=== PATIENT | female | born 1965 | race Caucasian/White ===

== ENCOUNTER 2017-02-08 08:41 | Emergency (ER) | payer OTHER ==
[~2017-02-08] VITALS: Ht 162.6 cm; Wt 78.0 kg
[~2017-02-08 08:41] MED LIST: ALBU8.5H3 INH; AZIT250T94 PO; IBUP-1542 PO
[2017-02-08 08:44] VITALS: Ht 162.6 cm; Wt 78.0 kg
[2017-02-08 09:10] LABS: URINE BLOOD (Dip) POC Trace-intact (NEGATIVE)
[2017-02-08] MEDS ORDERED: CEPH-443 PO (09:29)
--- NOTE | 2017-02-08 09:32 | ERD ---
ER Documentation Chief Complaint Date/Time DATE: 02/08/17 TIME: 09:31 Chief Complaint DYSURIA X 4 DAYS HPI This 51-year-old female presents with dysuria for last 4 days. She was seen at the [facility] and prescribed Bactrim. She complains of persistent dysuria. She denies abdominal pain, fevers, vomiting, bleeding or discharge. She denies flank pain. ROS All systems reviewed and are negative except as per history of present illness. Medications Home Meds Active Scripts Cephalexin* (Keflex*) 500 Mg Capsule, 500 MG PO QID for 5 Days, CAP Prov:RASHEEDA MOHAN MD 02/08/17 Albuterol Sulfate* (Proair HFA*) 8.5 Gm Hfa.aer.ad, 1-2 PUFF INH Q4, #1 INH Prov:VIGNESH AMADOR PA-C 06/04/15 Azithromycin* (Zithromax*) 250 Mg Tablet, 250 MG PO .ZPACK DIRECTED, #6 TAB TAKE 500 MG (2 TABS) THE FIRST DAY THEN 250 MG (1 TAB) DAYS 2-5 Prov:VIGNESH AMADOR PA-C 06/04/15 Ibuprofen* (Motrin*) 600 Mg Tab, 600 MG PO Q6, #20 TAB Prov:VIGNESH AMADOR PA-C 06/04/15 PMhx/Soc Medical and Surgical Hx: pt denies Medical Hx, pt denies Surgical Hx Hx Alcohol Use: No Hx Substance Use: No Hx Tobacco Use: No Physical Exam Vitals Vital Signs Date Time Temp Pulse Resp B/P Pulse Ox O2 Delivery O2 Flow Rate FiO2 02/08/17 08:44 98.1 78 20 130/78 99 Physical Exam Const: [] Alert, [id number]. Head: Atraumatic Eyes: Normal Conjunctiva ENT: Normal External Ears, Nose and Mouth. Neck: Full range of motion..~ No meningismus. Resp: Clear to auscultation bilaterally Cardio: Regular rate and rhythm, no murmurs Abd: Soft, non tender, non distended. Normal bowel sounds Skin: No petechiae or rashes Back: No midline or flank tenderness Ext: No cyanosis, or edema Neur: Awake and alert Psych: Normal Mood and Affect Results 24 hrs Laboratory Tests Test 02/08/17 09:12 Bedside Urine pH (LAB) 6.0 Bedside Urine Protein (LAB) Negative Bedside Urine Glucose (UA) 0.1% Bedside Urine Ketones (LAB) Negative Bedside Urine Blood Trace-intact Bedside Urine Nitrite (LAB) Negative Bedside Urine Leukocyte Esterase (L 3+ Current Medications Medications (Trade) Dose Ordered Sig/Cody Route PRN Reason Start Time Stop Time Status Last Admin Dose Admin Cephalexin (Keflex) 500 mg ONCE ONCE PO 02/08/17 09:30 02/08/17 09:31 UNV Procedures/MDM And shows 3+ leukocytes, 0.1% glucose, hemoglobin and was sent for culture. Patient was given Keflex 500 mg and Pyridium 200 mg by mouth. Patient presents with dysuria despite taking Bactrim from another provider. We will treat with Keflex at home and await culture. She is advised to return for fevers, vomiting , shortness breath or chest pain, abdominal pain. Current signs and symptoms do not suggest to ovarian abscess, PID, appendicitis, acute abdomen, sepsis, pyelonephritis Departure Diagnosis: Primary Impression: Dysuria Condition: Stable Patient Instructions: Understanding Urinary Tract Infections (UTIs) Additional Instructions: TIENE INFECCION EN ORINA . VAMOS A CAMBIAR ANTIBIOTICOS Y PERFORMA CULTURA DE ORINA ( VA A REGRESA 3-4 GUADARRAMA). Cheque otro vez con coronado doctor primario en el proximo guadarrama or regresa para mas o nueva simptomas. RASHEEDA MOHAN MD Feb 08, 2017 09:32
[2017-02-08] MEDS ORDERED: CEPHALEXIN 500 MG CAP PO ONE (09:47)
== END 2017-02-08 10:01 | disposition home or self-care (01) ==
LOC: FTE 08:41
DX: R30.0 Dysuria (principal)
CPT/HCPCS: 81003; 87086; Z7502; Z7610; 99283